=== PATIENT | male | born 1965 | race Caucasian/White ===

== ENCOUNTER 2021-03-16 18:35 | Emergency (ER) | payer OTHER ==
[2021-03-16 20:07] LABS: HEMOGLOBIN 15.2 gm/dl (14.0-17.5); RED BLOOD COUNT 5.11 M/UL (4.20-5.50); WHITE BLOOD COUNT 7.2 K/UL (4.5-11.0)
[2021-03-16 20:31] LABS: BUN/CREATININE RATIO 16 (0-10)
== END 2021-03-16 20:46 | disposition home or self-care (01) ==
LOC: ER1 18:35
PROVIDERS: Physician Assistant Medical
DX: M25.571 Pain in right ankle and joints of right foot (principal); E11.9 Type 2 diabetes mellitus without complications; I10 Essential (primary) hypertension
CPT/HCPCS: 80053; 84550; 85025; 85379; 85610; 99283

== ENCOUNTER → 2021-05-07 | Outpatient (CLI) | payer OTHER | LOC: KOH-I 14:46 | DX: M46.86 Other specified inflammatory spondylopathies, lumbar region (principal); M54.5 Low back pain; M43.07 Spondylolysis, lumbosacral region; M47.816 Spondylosis without myelopathy or radiculopathy, lumbar region | CPT/HCPCS: 72100 ==

== ENCOUNTER → 2021-05-15 | Outpatient (CLI) | payer OTHER | LOC: EXRD 08:52 | DX: R79.89 Other specified abnormal findings of blood chemistry (principal) | CPT/HCPCS: 76700 ==

== ENCOUNTER → 2021-10-19 | Outpatient (CLI) | payer OTHER ==
[2021-10-19 15:29] LABS: HEMOGLOBIN 16.5 gm/dl (14.0-17.5); RED BLOOD COUNT 5.57 M/UL (4.20-5.50)
[2021-10-20 07:11] LABS: A/G RATIO 1.7 (1.2-2.2); ALKALINE PHOSPHATASE, S 70 IU/L (44-121); ALT (SGPT) 48 IU/L (0-44); AST (SGOT) 26 IU/L (0-40); BILIRUBIN, TOTAL 0.6 mg/dL (0.0-1.2); BUN 17 mg/dL (6-24); BUN/CREATININE RATIO 18 (9-20); CALCIUM, SERUM 10.6 mg/dL (8.7-10.2); CARBON DIOXIDE, TOTAL 24 mmol/L (20-29); CHLORIDE, SERUM 104 mmol/L (96-106); CREATININE, SERUM 0.93 mg/dL (0.76-1.27); EGFR IF AFRICN AM 106 (>59); EGFR IF NONAFRICN AM 91 (>59); GLOBULIN, TOTAL 2.6 g/dL (1.5-4.5); GLUCOSE, SERUM 121 mg/dL (65-99); POTASSIUM, SERUM 4.5 mmol/L (3.5-5.2); SODIUM, SERUM 142 mmol/L (134-144)
[2021-10-20 08:14] LABS: HIV AB/P24 AG SCREEN Non Reactive (Non Reactive)
[2021-10-20 11:12] LABS: HBSAG SCREEN Negative (Negative); HCV ANTIBODY <0.1 (0.0-0.9); HEP B CORE AB, IGM Negative (Negative); HEPATITIS B SURF AB QUANT <3.1 mIU/mL (Immunity>9.9)
[2021-10-22 22:11] LABS: QUANTIFERON MITOGEN VALUE >10.00 IU/mL (.); QUANTIFERON NIL VALUE 0.06 IU/mL (.); QUANTIFERON TB1 AG VALUE 0.21 IU/mL (.); QUANTIFERON TB2 AG VALUE 0.16 IU/mL (.); QUANTIFERON-TB GOLD PLUS Negative (Negative)
== END ==
LOC: LAB 14:20
PROVIDERS: Nurse Practitioner Family
DX: L73.2 Hidradenitis suppurativa (principal)
CPT/HCPCS: 36415; 80053; 85025; 86317; 86704; 86705; 86803; 87340; 87389

== ENCOUNTER 2021-11-13 10:49 | Emergency (ER) | payer OTHER | END 2021-11-13 13:05 | disposition home or self-care (01) | LOC: ER1 10:49 | DX: S61.012A Laceration without foreign body of left thumb without damage to nail, initial encounter (principal); I10 Essential (primary) hypertension; K21.9 Gastro-esophageal reflux disease without esophagitis; Z23 Encounter for immunization; W45.8XXA Other foreign body or object entering through skin, initial encounter; Y99.0 Civilian activity done for income or pay | CPT/HCPCS: 12002; 90471; 90715; 99283; J0692; J3370 ==

== ENCOUNTER 2021-11-27 10:32 | Emergency (ER) | payer OTHER | END 2021-11-27 11:09 | disposition home or self-care (01) | LOC: ER1 10:32 | DX: S61.412D Laceration without foreign body of left hand, subsequent encounter (principal); E11.9 Type 2 diabetes mellitus without complications; I10 Essential (primary) hypertension; X58.XXXD Exposure to other specified factors, subsequent encounter | CPT/HCPCS: 99281 ==

== ENCOUNTER 2021-12-03 11:19 | Emergency (ER) | payer OTHER | END 2021-12-03 12:24 | disposition home or self-care (01) | LOC: ER1 11:19 | DX: S61.012D Laceration without foreign body of left thumb without damage to nail, subsequent encounter (principal); I10 Essential (primary) hypertension; E11.9 Type 2 diabetes mellitus without complications; F17.200 Nicotine dependence, unspecified, uncomplicated | CPT/HCPCS: 99281 ==